=== PATIENT | female | born 1980 | race Caucasian/White ===

== ENCOUNTER 2019-10-16 09:16 | Observation (INO) | payer OTHER ==
[2019-10-16] MEDS ORDERED: Ibuprofen 400 MG Tab PO PRN (09:47)
[2019-10-16] MEDS ORDERED: Acetaminophen 500 MG Tab PO PRN (09:47)
[2019-10-16] MEDS ORDERED: Albuterol 0.083% 2.5 MG/3 ML Neb Soln NEB PRN (09:47)
[2019-10-16] MEDS ORDERED: Sodium Chloride 0.9% 1,000 ML IV SCH (10:00)
[2019-10-16] MEDS: cefTRIAXone 1 GM Vial IVPUSH SCH (11:41)
[2019-10-16] MEDS: Albuterol/Ipratropium 3.0-0.5 MG/3 ML Neb Soln NEB SCH ×3 (11:42→22:06)
[2019-10-16] MEDS: predniSONE 20 MG Tab PO SCH ×2 (11:42→20:30)
[2019-10-16] MEDS: Azithromycin 500 MG in Sodium Chloride 0.9% 250 ML IV SCH (11:50)
[2019-10-16] MEDS: Sodium Chloride 0.9% 1,000 ML IV SCH ×2 (13:45→20:31)
[2019-10-16] MEDS ORDERED: Ondansetron 4 MG Tab.DIS PO PRN (13:48)
[2019-10-16] MEDS ORDERED: busPIRone 10 MG Tab PO SCH (14:00)
[2019-10-16] MEDS ORDERED: busPIRone 10 MG Tab PO PRN (15:49)
[2019-10-16] MEDS ORDERED: Ketorolac 30 MG/ML SDV IVPUSH ONE (17:32)
[2019-10-16] MEDS ORDERED: Ketorolac 60 MG/2 ML SDV IM ONE (17:53)
[2019-10-17] MEDS: Sodium Chloride 0.9% 1,000 ML IV SCH (03:07)
[2019-10-17] MEDS: Albuterol/Ipratropium 3.0-0.5 MG/3 ML Neb Soln NEB SCH ×2 (05:57→11:53)
[2019-10-17] MEDS: predniSONE 20 MG Tab PO SCH (08:27)
[2019-10-17] MEDS ORDERED: Venlafaxine 37.5 MG Cap.ER PO SCH (09:00)
[2019-10-17] MEDS: cefTRIAXone 1 GM Vial IVPUSH SCH (10:11)
[2019-10-17] MEDS: Azithromycin 500 MG in Sodium Chloride 0.9% 250 ML IV SCH (10:21)
--- NOTE | 2019-10-17 13:00 | PCM.DCSUM1 ---
Discharge Summary - Hospital Course Diagnosis: Stroke: No - Discharge Data Discharge Date: 10/17/19 Discharge Disposition: Home, Self-Care 01 Condition: Good - Referral to Home Health Primary Care Physician: Mena Love PA-C - Patient Instructions Diet: Usual Diet as Tolerated, Drink 8-10+ Glasses/Day Activity: As Tolerated, Cough & Deep Breathe Driving: May Drive Today Showering/Bathing: May Shower Notify Provider of: Fever, Nausea and/or Vomiting Other/Special Instructions: --Use your incentive spirometer every 2 hours while awake the next 4 days. --Coughing and deep breathing exercises. --Taper down your prednisone, take with food, take it with Tums. --You may cough for 2 or 3 more weeks however inform me if night sweats, weakness, dehydration or vomiting or fever greater than 101. --Avoid pressure extremes. --You can return Sunday to work fever however you will need follow-up appointment that day - Discharge Plan *PRESCRIPTION DRUG MONITORING PROGRAM REVIEWED*: Not Applicable *COPY OF PRESCRIPTION DRUG MONITORING REPORT IN PATIENT JASKARAN: Not Applicable Prescriptions/Med Rec: Azithromycin 250 mg PO DAILY #4 tablet Home Medications: Home Meds Aspirin/Acetaminophen/Caffeine [Pain Relievr [phone] Cplt] 2 tab PO Q6H PRN 10/16/19 [History] Ibuprofen 200 mg PO ASDIRECTED PRN 10/16/19 [History] Meloxicam 7.5 mg PO DAILY 10/16/19 [History] Non-Formulary Medication [NF Drug] 1 applic TOP BID PRN 10/16/19 [History] Ondansetron [Zofran ODT] 4 mg PO Q4H PRN 10/16/19 [History] Venlafaxine [Effexor XR] 1 cap PO DAILY 10/16/19 [History] busPIRone [Buspar] 5 mg PO TID PRN 10/16/19 [History] levonorgestreL [Mirena] 1 device VAG ASDIRECTED 10/16/19 [History] valACYclovir [Valtrex] 2 tab PO BID PRN 10/16/19 [History] Azithromycin 250 mg PO DAILY #4 tablet 10/17/19 [Rx] Referrals: Esha Terry NP [Nurse Practitioner] - 10/20/19 9:30 am Mena Love PA-C [Primary Care Provider] - (Sunday [facility], anybody of her choice,) - Discharge Summary/Plan Comment DC Time >30 min.: No Discharge Summary/Plan Comment: Final diagnosis Pneumonia, CAP, POA, suspect bacterial component Influenza B, with complications of pneumonia Hydration, much improved Headache, suspect fluid shift etiology, much improved History summary 39-year-old female was admitted by Esha Terry [employer] due to complications of influenza B frequent pneumonia. She was evaluated initially when she came in complaining of body-aches and having cold symptoms for the past week with an exacerbating active and productive along with sore throat chest tightness. She was treated with single dows antiviral Xofluza on 10/14. Been taking alternating Tylenol ibuprofen with very minimal improvement. Non-smoker. Clinical work-up demonstrated the patient to be tachycardic 140s with a temperature 104.4 with SPO2 94% respiratory rate 22. She had expiratory wheezes upper lobes with diminished air exchange of bilateral lower lobes. She was admitted for IV antibiotics and hydration Hospital course She did quite well throughout her short hospital stay. She was given aggressive IV fluids, Rocephin and azithromycin. Her fluid shifts she did have a headache which was resolved with IM NSAIDs ketorolac. T maximum the hospital was 100.8 however she was afebrile on discharge Medication additions/changes/adjustments upon discharge --Azithromycin, 250 mg p.o. x4 days --Continue all other home medications Disposition/patient education --Patient was discharged from [facility], much improved --Use your incentive spirometer every 2 hours while awake the next 4 days --Coughing and deep breathing exercises --Taper down your prednisone, take with food, take it with Tums --You may cough for 2 or 3 more weeks however inform me if night sweats, weakness, dehydration or vomiting or fever greater than 101 --Avoid temperature extremes --RTN Sunday to work if no fever however you will need follow-up appointment that day - General Info Functional Status: Reports: Pain Controlled, Tolerating Diet, Incentive Spirometry. Denies: New Symptoms - Review of Systems General: Denies: Fever, Weakness, Fatigue, Malaise, Chills HEENT: Reports: No Symptoms Pulmonary: Reports: Cough Cardiovascular: Reports: No Symptoms Gastrointestinal: Reports: No Symptoms Genitourinary: Reports: No Symptoms Musculoskeletal: Reports: No Symptoms Skin: Reports: No Symptoms Neurological: Reports: No Symptoms Psychiatric: Reports: No Symptoms - Patient Data Vitals - Most Recent: Last Vital Signs Temp 96.8 F L 10/17/19 06:51 Pulse 70 10/17/19 10:34 Resp 16 10/17/19 06:51 BP 102/61 10/17/19 06:51 Pulse Ox 97 10/17/19 06:51 Weight - Most Recent: 150 lb 11.2 oz I&O - Last 24 hours: Intake & Output 10/16/19 10/17/19 10/17/19 22:59 06:59 14:59 Intake Total 650 2843 Balance 650 2843 Med Orders - Current: Current Medications Acetaminophen (Tylenol Extra Strength) 1,000 mg PO Q6H PRN PRN Reason: Pain (Mild 1-3)/fever Albuterol (Proventil Neb Soln) 2.5 mg NEB Q4H PRN PRN Reason: Shortness Of Breath/wheezing Albuterol/Ipratropium (Duoneb 3.0-0.5 Mg/3 Ml) 3 ml NEB Q6HRRT [facility] Last Admin: 10/17/19 11:53 Dose: Not Given Buspirone HCl (Buspar) 5 mg PO TID PRN PRN Reason: Anxiety Ceftriaxone Sodium (Rocephin) 1 gm IVPUSH Q24H [facility] Last Admin: 10/17/19 10:11 Dose: 1 gm Sodium Chloride (Normal Saline) 1,000 mls @ 999 mls/hr IV .BOLUS [facility] Last Admin: 10/16/19 10:32 Dose: 500 mls/hr Sodium Chloride (Normal Saline) 1,000 mls @ 150 mls/hr IV ASDIRECTED [facility] Last Admin: 10/17/19 03:07 Dose: 150 mls/hr Azithromycin 500 mg/ Sodium (Chloride) 250 mls @ 250 mls/hr IV Q24H [facility] Last Admin: 10/17/19 10:21 Dose: 250 mls/hr Ibuprofen (Motrin) 800 mg PO Q6H PRN PRN Reason: Pain (mild 1-3) Last Admin: 10/16/19 10:12 Dose: 800 mg Ondansetron HCl (Zofran Odt) 4 mg PO Q4H PRN PRN Reason: Nausea Prednisone (Prednisone) 20 mg PO BID [facility] Last Admin: 10/17/19 08:27 Dose: 20 mg Venlafaxine HCl (Effexor Xr) 75 mg PO DAILY [facility] Last Admin: 10/17/19 08:27 Dose: 75 mg Discontinued Medications Buspirone HCl (Buspar) 5 mg PO TID [facility] Last Admin: 10/16/19 16:16 Dose: Not Given Ketorolac Tromethamine (Toradol) 60 mg IVPUSH ONETIME ONE Stop: 10/16/19 17:33 Last Admin: 10/16/19 19:04 Dose: Not Given Ketorolac Tromethamine (Toradol) 60 mg IM ONETIME ONE Stop: 10/16/19 17:54 Last Admin: 10/16/19 18:18 Dose: 60 mg - Exam Quality Assessment: Denies: Supplemental Oxygen General: Reports: Alert, Oriented Neck: Reports: Supple Lungs: Reports: Clear to Auscultation, Normal Respiratory Effort Cardiovascular: Reports: Regular Rate, Regular Rhythm Skin: Reports: Dry Psy/Mental Status: Reports: Alert
== END 2019-10-17 12:52 | disposition home or self-care (01) ==
LOC: KA.MS 09:35
PROVIDERS: ADMIT Nurse Practitioner Family; ATTEND Nurse Practitioner Family
DX: J10.00 Influenza due to other identified influenza virus with unspecified type of pneumonia (principal); E86.0 Dehydration; Z79.899 Other long term (current) drug therapy; Z79.82 Long term (current) use of aspirin
CPT/HCPCS: 94640; 96360; 96361; 96372; A9270-GY; G0378; J0456; J0696; J1885; J7030; J7050; J7620-GY

== ENCOUNTER 2020-09-20 01:00 | Emergency (ER) | payer OTHER ==
[2020-09-20] MEDS ORDERED: Ketorolac 30 MG/ML SDV IVPUSH ONE (01:25)
[2020-09-20] MEDS ORDERED: Ondansetron 4 MG/2 ML SDV IVPUSH ONE (01:25)
--- NOTE | 2020-09-20 01:28 | EDM.PDOC ---
ED HPI GENERAL MEDICAL PROBLEM - General Chief Complaint: Abdominal Pain Stated Complaint: abdominal pain Time Seen by Provider: 09/20/20 01:27 Source of Information: Reports: Patient History Limitations: Reports: No Limitations - History of Present Illness INITIAL COMMENTS - FREE TEXT/NARRATIVE: Dunia, 40-year-old female, presents along with her significant other to the emergency department with pelvic cramping and trace vaginal bleeding. She underwent laparoscopic hysterectomy 5 weeks 3 days ago with no sequela from that. She had vaginal intercourse for the first time last evening since the surgery and noticed a trace amount of blood-tinged discharge. Living[place] Wheeler was stopped and she placed a pad, of which she saw bright red blood in very small amount thereafter. Roughly an hour after the activity, she started developing severe pelvic cramping and pain and presented here for evaluation. She denies any fever, chills, or concerns with urine. Has had occasional constipation which resolved with home treatment. Denies any COVID-19 pandemic issues or concerns or symptoms. She does have history of intermittent/chronic back pain with flareups. She takes Tylenol and ibuprofen for this so low-grade fever could be slightly masked in that perspective. Onset: Sudden Onset Date: 09/19/20 Onset Time: 23:45 Duration: Hour(s): Location: Reports: Pelvis Quality: Reports: Sharp, Stabbing Severity: Severe Improves with: Reports: None Worsens with: Reports: Movement Context: Reports: Activity Associated Symptoms: Reports: No Other Symptoms lower abdomen Pain Score (Numeric/FACES): 9 - Related Data Allergies Allergy/AdvReac Type Severity Reaction Status Date / Time No Known Allergies Allergy Verified 09/20/20 01:23 Home Meds: Home Meds Ibuprofen 200 mg PO ASDIRECTED PRN 10/16/19 [History] Non-Formulary Medication [NF Drug] 1 applic TOP BID PRN 10/16/19 [History] Ondansetron [Zofran ODT] 4 mg PO Q4H PRN 10/16/19 [History] Venlafaxine [Effexor XR] 1 cap PO DAILY 10/16/19 [History] Past Medical History HEENT History: Reports: Impaired Vision 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 Psychiatric History: Reports: Anxiety, Depression, PTSD - Infectious Disease History Infectious Disease History: Reports: Chicken Pox, Shingles - Past Surgical History Head Surgeries/Procedures: Reports: None HEENT Surgical History: Reports: Adenoidectomy, Oral Surgery, Tonsillectomy Other HEENT Surgeries/Procedures: jaw surgery Female Surgical History: Reports: Hysterectomy Dermatological Surgical History: Reports: None Social & Family History - Family History Family Medical History: No Pertinent Family History - Caffeine Use Caffeine Use: Reports: Soda - Sexual History Sexual History: Reports: Same Sex Partner, Vaginal Livingston Wheeler ED ROS GENERAL - Review of Systems Review Of Systems: Comprehensive ROS is negative, except as noted in HPI. ED EXAM, GENERAL - Physical Exam Exam: See Below Free Text/Narrative:: Alert, oriented, with mild painful cramping distress. She demonstrates anxiety which is understandable. HEENT is negative discharge or deformity. Neck is soft supple with no rigidity. Thorax is clear no wheezes no crackles are appreciated. Cardiac is regular I do not appreciate any murmur. Apical heart rate correlates with radial pulse. Radial pulses present even when bedside blood pressure monitor shows hypotensive in the 70s systolic. Abdomen is soft there is mild guarding secondary of her cramping in the lower abdomen pelvic region. Bowel sounds are present. There is no specific tenderness to palpation of the upper quadrants or epigastric region. There is mild tenderness in the mid umbilical region. There is no rebound tenderness, nor psoas sign. After examination and discussion she agrees to pelvic examination. Placed in lithotomy position with nurse present to assist. Normal-appearing female genitalia with a moist nearly clear discharge at the introitus. Minimally lubricated speculum is advanced slightly showing moisture which is easily removed with the application of a 4 x 4 to the perineum surface after removal of the speculum. Speculum was then again advanced slightly showing healthy pink tissue and no discomfort is experienced. I am able to slowly advance a speculum for roughly 3 inches at which time there is no abnormality noted. Advancing from this point inward there is noted to be an increase of fluid, with an actual stream of fluid from what would be the 10 o'clock position of the vaginal canal. This was enough to fill the speculum in this position. I was able to withdraw 10 mm syringe of fluid through the opening of the speculum and collect for lab sampling testing. Examination was stopped at this time secondary to the inability to visualize anything secondary of collection of vaginal fluid. Fluid is hazy turbid in its appearance with some odor. Slow slight leakage is noted after she is returned to the supine positioning with vaginal tissue evidently tamponading. Course - Vital Signs Last Recorded V/S: Last Vital Signs Temp 97.4 F 09/20/20 01:00 Pulse 104 H 09/20/20 01:00 Resp 14 09/20/20 01:00 BP 117/63 09/20/20 01:40 Pulse Ox 96 09/20/20 01:00 - Orders/Labs/Meds Orders: Active Orders 24 hr Category Date Time Status Abdomen Pelvis w Cont [CT] Stat Exams 09/20/20 02:12 Ordered CULTURE BLOOD [BC] Stat Lab 09/20/20 02:45 Received MISCELLANEOUS CULT [MREF] Stat Lab 09/20/20 02:07 Received Sodium Chloride 0.9% [Normal Saline] 50 ml Med 09/20/20 03:15 Active IV ASDIRECTED Medication Orders Sodium Chloride (Normal Saline) 50 mls @ 200 mls/hr IV ASDIRECTED [facility] Last Admin: 09/20/20 03:00 Dose: 200 mls/hr Documented by: CITLALY Labs: Laboratory Tests 09/20/20 09/20/20 09/20/20 Range/Units 01:10 01:10 02:45 WBC 13.77 H (5.00-10.00) 10^3/uL RBC 4.33 (3.80-5.50) 10^6/uL Hgb 13.5 (12.0-16.0) g/dL Hct 39.4 (37.0-47.0) % MCV 91.0 (82.0-92.0) fL MCH 31.2 H (27.0-31.0) pg MCHC 34.3 (32.0-36.0) g/dL RDW 12.8 (11.5-14.5) % Plt Count 321 (150-400) 10^3/uL MPV 10.4 (7.4-10.4) fL Immature Gran % (Auto) 0.1 (0.0-5.0) % Neut % (Auto) 63.6 (50.0-70.0) % Lymph % (Auto) 30.2 (20.0-40.0) % [place] % (Auto) 2.4 (2.0-8.0) % Eos % (Auto) 3.6 H (1.0-3.0) % Baso % (Auto) 0.1 (0.0-1.0) % Neut # (Auto) 8.75 H (2.50-7.00) 10^3/uL Lymph # (Auto) 4.16 H (1.00-4.00) 10^3/uL [place] # (Auto) 0.33 (0.10-0.80) 10^3/uL Eos # (Auto) 0.49 H (0.10-0.30) 10^3/uL Baso # (Auto) 0.02 (0.00-0.10) 10^3/uL Immature Gran # (Auto) 0.02 (0.00-0.50) 10^3/uL Sodium 137 (136-145) mmol/L Potassium 3.4 L (3.5-5.1) mmol/L Chloride 103 (98-107) mmol/L Carbon Dioxide 26.7 (21.0-32.0) mmol/L Anion Gap 10.7 (5-15) mmol/L BUN 13 (7-18) mg/dL Creatinine 0.88 (0.51-1.17) mg/dL Est Cr Clr Drug Dosing TNP Estimated GFR (MDRD) > 60 mL/min Glucose 98 (70-140) mg/dL Lactic Acid 1.6 (0.4-2.0) mmol/L Calcium 8.5 L (8.7-10.3) mg/dL Total Bilirubin 0.2 (0.2-1.0) mg/dL AST 9 L (15-37) U/L ALT 17 (14-63) U/L Alkaline Phosphatase 113 (46-116) U/L Total Protein 7.1 (6.4-8.2) g/dL Albumin 3.80 (3.40-5.00) g/dL Meds: Medications Generic Name Dose Route Start Last Admin Trade Name Freq PRN Reason Stop Dose Admin Sodium Chloride 50 mls @ 200 mls/hr 09/20/20 03:15 09/20/20 03:00 Normal Saline IV 200 mls/hr ASDIRECTED [facility] Administration Discontinued Medications Generic Name Dose Route Start Last Admin Trade Name Freq PRN Reason Stop Dose Admin Diphenhydramine HCl 25 mg 09/20/20 03:15 09/20/20 03:23 Benadryl PO 09/20/20 03:16 25 mg ONETIME ONE Administration Hydromorphone HCl 1 mg 09/20/20 01:44 09/20/20 01:47 Dilaudid IVPUSH 09/20/20 01:45 1 mg ONETIME ONE Administration Hydromorphone HCl 1 mg 09/20/20 02:46 09/20/20 03:06 Dilaudid IVPUSH 09/20/20 02:47 1 mg ONETIME ONE Administration Iopamidol 75 ml 09/20/20 03:13 09/20/20 03:00 Isovue-370 (76%) IVPUSH 09/20/20 03:14 75 ml ONETIME ONE Administration Ketorolac Tromethamine 30 mg 09/20/20 01:25 09/20/20 01:33 Toradol IVPUSH 09/20/20 01:26 30 mg ONETIME ONE Administration Ondansetron HCl 4 mg 09/20/20 01:25 09/20/20 01:30 Zofran IVPUSH 09/20/20 01:26 4 mg ONETIME ONE Administration - Re-Assessments/Exams Free Text/Narrative Re-Assessment/Exam: 09/20/20 03:40 Mild pruritus after the second milligram of hydromorphone. She acknowledges this as occurred previously and usually resolves with diphenhydramine. Significant improvement at this time after 25 mg of p.o. diphenhydramine. Departure - Departure Time of Disposition: 04:39 Disposition: Home, Self-Care 01 Condition: Good Clinical Impression: Vaginal discharge, Pelvic cramping, Status post abdominal hysterectomy - Discharge Information *PRESCRIPTION DRUG MONITORING PROGRAM REVIEWED*: Yes *COPY OF PRESCRIPTION DRUG MONITORING REPORT IN PATIENT JASKARAN: Yes Instructions: Nausea and Vomiting, Adult, [id number], Pain Medicine Instructions, [id number], Abdominal Pain, Adult, [id number] Referrals: Manoj Stauffer MD [Physician] - Forms: ED Department Discharge Additional Instructions: Discussed with [facility] provider radiographer cardiac catheterization as to details of ED visit. Discussion on the aspects of stable patient with pain being the main concern in her discomfort, with fluid discharge that does not seemingly coincide with 5-1/2-week postsurgical and no symptoms of illness/fever/infection. Feels that follow-up with R[employer]ARY D[employer]ER OPERATOR Pat Syed at tomorrow if she is comfortable going home with minimal pain control would be advisable. Does not feel that antibiotic is warranted at this time. Does recommend that if pain did become severe or other concerns that she may be best served by driving directly to the [facility] facility in [place] for further work-up. If she is able to remain at home until clinic opens in the morning contacting ROTARY D[employer]ER OPERATOR services, Dr Stauffer as well as the local [facility] clinic where she is employed for a possible ultrasound would be appropriate. Hydrocodone 5/325 q4 hours as needed. Home and rest. In the event pain would become severe you may return to the emergency department or consider going directly to the [facility] emergency department in [place]. Contact R[employer]ARY DRIER OPERATOR in the morning as well as your clinic where ultrasound is available. Follow-up or return with us as needed. Sepsis Event Note (ED) - Focused Exam Vital Signs: Vital Signs Temp Pulse Resp BP Pulse Ox 09/20/20 01:40 117/63 09/20/20 01:20 95/53 L 09/20/20 01:00 97.4 F 104 H 14 113/58 L 96 - Problem List & Annotations (1) Pelvic cramping SNOMED Code(s): 78674220, 83787522 Code(s): R10.2 - PELVIC AND PERINEAL PAIN Status: Acute Priority: High (2) Vaginal discharge SNOMED Code(s): 727984616 Code(s): N89.8 - OTHER SPECIFIED NONINFLAMMATORY DISORDERS OF VAGINA Status: Acute Priority: High (3) Status post abdominal hysterectomy SNOMED Code(s): 936695427, 281063280 Code(s): Z90.710 - ACQUIRED ABSENCE OF BOTH CERVIX AND UTERUS Status: Acute Priority: Medium - Problem List Review Problem List Initiated/Reviewed/Updated: Yes - My Orders Last 24 Hours: My Active Orders 09/20/20 02:07 MISCELLANEOUS CULT [MREF] Stat 09/20/20 02:12 Abdomen Pelvis w Cont [CT] Stat 09/20/20 02:45 CULTURE BLOOD [BC] Stat 09/20/20 03:15 Sodium Chloride 0.9% [Normal Saline] 50 ml IV ASDIRECTED - Assessment/Plan Last 24 Hours: My Active Orders 09/20/20 02:07 MISCELLANEOUS CULT [MREF] Stat 09/20/20 02:12 Abdomen Pelvis w Cont [CT] Stat 09/20/20 02:45 CULTURE BLOOD [BC] Stat 09/20/20 03:15 Sodium Chloride 0.9% [Normal Saline] 50 ml IV ASDIRECTED Plan: Discuss with [facility] provider radiographer cardiac catheterization . Discussion on the aspects of stable patient with pain being the main concern in her discomfort, with fluid discharge that does not seemingly coincide with 5-1/2-week postsurgical and no symptoms of illness/fever/infection. Feels that follow-up with ROTARY DRIER OPERATOR Pat Syed at tomorrow if she is comfortable going home with minimal pain control would be advisable. Does not feel that antibiotic is warranted at this time. Does recommend that if pain did become severe or other concerns that she may be best served by driving directly to the [facility] facility in [place] for further work-up. If she is able to remain at home until clinic opens in the morning contacting ROTARY DRIER OPERATOR services, Dr Stauffer as well as the local [facility] clinic where she is employed for a possible ultrasound would be appropriate. Hydrocodone 5/325 q4 hours as needed. Home and rest. In the event pain would become severe you may return to the emergency department or consider going directly to the [facility] emergency department in [place]. Contact ROTARY DRIER OPERATOR in the morning as well as your clinic where ultrasound is available. Follow-up or return with us as needed.
[2020-09-20] MEDS ORDERED: HYDROmorphone 1 MG/ML Syringe IVPUSH ONE ×2 (01:44→02:46)
[2020-09-20 02:03] LABS: ANION GAP 10.7 mmol/L (5-15); CHLORIDE,CL 103 mmol/L (98-107); SODIUM,NA 137 mmol/L (136-145)
[2020-09-20] MEDS: Sodium Chloride 0.9% 50 ML IV SCH ×2 (02:55→03:00)
[2020-09-20] MEDS ORDERED: Iopamidol 755 Mg/ML 75 ML Bottle IVPUSH ONE (03:13)
[2020-09-20] MEDS ORDERED: diphenhydrAMINE 25 MG Cap PO ONE (03:15)
[2020-09-20] MEDS ORDERED: Acetaminophen/HYDROcodone 325-5 MG Tab PO ONE (04:40)
== END 2020-09-20 05:00 | disposition home or self-care (01) ==
LOC: KA.ED 01:00
DX: N89.8 Other specified noninflammatory disorders of vagina (principal); Z90.710 Acquired absence of both cervix and uterus
CPT/HCPCS: 36415; 74177; 80053; 83605; 85025; 87040; 87070; 87075; 87205; 96374; 96375; 96376; 99284; 99284-25; A9270-GY; J1170; J1885; J2405; Q9967

== ENCOUNTER 2023-08-13 11:56 | Emergency (ER) | payer OTHER ==
[2023-08-13] MEDS ORDERED: Sodium Chloride 0.9% 10 ML Syringe FLUSH PRN (12:03)
[2023-08-13 12:10] LABS: BASOPHILS ABSOLUTE AUTO 0.03 10^3/uL (0.00-0.10); BASOPHILS PERCENT AUTO 0.3 % (0.0-1.0); EOSINOPHILS ABSOLUTE AUTO 0.24 10^3/uL (0.10-0.30); EOSINOPHILS PERCENT AUTO 2.3 % (1.0-3.0); HEMATOCRIT 43.5 % (37.0-47.0); HEMOGLOBIN 14.1 g/dL (12.0-16.0); IMMATURE GRAN ABSOLUTE AUTO 0.02 10^3/uL (0.00-0.50); IMMATURE GRAN PERCENT AUTO 0.2 % (0.0-5.0); LYMPHOCYTES ABSOLUTE AUTO 3.64 10^3/uL (1.00-4.00); MEAN CORPUSCULAR HEMOGLOBIN 31.1 pg (27.0-31.0); MEAN CORPUSCULAR HGB CONC 32.4 g/dL (32.0-36.0); MEAN CORPUSCULAR VOLUME 95.8 fL (82.0-92.0); MEAN PLATELET VOLUME 9.1 fL (7.4-10.4); MONOCYTES ABSOLUTE AUTO 0.61 10^3/uL (0.10-0.80); MONOCYTES PERCENT AUTO 5.9 % (2.0-8.0); NEUTROPHILS ABSOLUTE AUTO 5.85 10^3/uL (2.50-7.00); NEUTROPHILS PERCENT AUTO 56.3 % (50.0-70.0); PLATELET COUNT,PLT 449 10^3/uL (150-400); RED BLOOD CELL COUNT 4.54 10^6/uL (3.80-5.50); RED CELL DISTRIBUTION WIDTH 13.3 % (11.5-14.5); WHITE BLOOD CELL COUNT,WBC 10.39 10^3/uL (5.00-10.00)
[2023-08-13] MEDS ORDERED: Sodium Chloride 0.9% 1,000 ML IV ONE ×2 (12:14→13:40)
[2023-08-13] MEDS ORDERED: Ondansetron 4 MG/2 ML SDV IVPUSH ONE (12:14)
[2023-08-13] MEDS ORDERED: Ondansetron 4 MG/2 ML SDV ONE (12:15)
[2023-08-13] MEDS ORDERED: Ketorolac 30 MG/ML SDV IVPUSH ONE (12:26)
[2023-08-13 12:27] LABS: HCG QUALITATIVE,SERUM NEGATIVE (NEGATIVE)
[2023-08-13] MEDS ORDERED: Ketorolac 30 MG/ML SDV ONE (12:28)
[2023-08-13 12:29] LABS: ALANINE AMINOTRANSFERASE,ALT 27 U/L (14-63); ALBUMIN 4.21 g/dL (3.40-5.00); ALKALINE PHOSPHATASE 112 U/L (46-116); ANION GAP 14.3 mmol/L (5-15); ASPARTATE AMNIOTRANSFERASE,AST 17 U/L (15-37); BILIRUBIN TOTAL 0.4 mg/dL (0.2-1.0); BLOOD UREA NITROGEN,BUN 15 mg/dL (7-18); CALCIUM 8.4 mg/dL (8.7-10.3); CARBON DIOXIDE,CO2 24.8 mmol/L (21.0-32.0); CHLORIDE,CL 98 mmol/L (98-107); CREATININE 0.94 mg/dL (0.51-1.17); EST CRCL DRUG DOSING (CG) 70.87 mL/min; GLUCOSE RANDOM 108 mg/dL (70-140); POTASSIUM,K 4.1 mmol/L (3.5-5.1); PROTEIN TOTAL,TP 7.8 g/dL (6.4-8.2); SODIUM,NA 133 mmol/L (136-145)
[2023-08-13 12:30] LABS: B-TYPE NATRIURETIC PEPTIDE,BNP < 5 pg/mL (0-100); ESTIMATED GFR 78 mL/min (>=60)
[2023-08-13 12:52] LABS: INFLUENZA A NAA NEGATIVE (NEGATIVE); INFLUENZA B NAA NEGATIVE (NEGATIVE); RESPIRATORY SYNCYTIAL VIR NAA NEGATIVE (NEGATIVE)
[2023-08-13 12:53] LABS: CORONAVIRUS COVID-19 NAA NEGATIVE (NEGATIVE)
[2023-08-13] MEDS ORDERED: Promethazine 25 MG in Sodium Chloride 0.9% 100 ML IV ONE (13:47)
[2023-08-13] MEDS ORDERED: HYDROmorphone 1 MG/ML Syringe IVPUSH ONE (13:49)
[2023-08-13] MEDS ORDERED: Naloxone 0.4 MG/ML SDV IVPUSH PRN (13:49)
[2023-08-13] MEDS ORDERED: Metoprolol Tartrate 5 MG/5 ML SDV IVPUSH ONE (14:35)
== END 2023-08-13 15:27 | disposition home or self-care (01) ==
LOC: KA.ED 11:56
DX: R00.0 Tachycardia, unspecified (principal); R53.81 Other malaise; R53.83 Other fatigue; Z20.822 Contact with and (suspected) exposure to COVID-19; Z79.82 Long term (current) use of aspirin; Z79.899 Other long term (current) drug therapy; Z90.710 Acquired absence of both cervix and uterus
CPT/HCPCS: 0241U; 36415; 71046; 80053; 83880; 84484; 84703; 85025; 85379; 93010; 96361; 96374; 96375; 99284; 99285-25; J1170; J1885; J2405; J2550; J3490; J7030